=== PATIENT | female | born 1990 | race Caucasian/White ===

== ENCOUNTER 2019-05-08 08:10 | Inpatient (IN) | payer OTHER ==
[~2019-05-08] VITALS: Ht 162 cm; Wt 81.2 kg
[2019-05-08] MEDS ORDERED: PREN-217 PO (09:00)
[2019-05-08 09:01] VITALS: BP 121/78
[2019-05-08] MEDS ORDERED: OXYTOCIN 30 UNITS/LACT RINGERS 500 ML IV ONE (10:22)
[2019-05-08] MEDS ORDERED: RINGERS SOLUTION,LACTATED 1,000 ML IV PRN (10:22)
[2019-05-08] MEDS ORDERED: METHYLERGONOVINE MALEATE 0.2 MG/ML VIAL IM PRN (10:30)
[2019-05-08] MEDS ORDERED: METOCLOPRAMIDE HCL 5 MG/ML 2 ML VIAL IVP PRN (10:30)
[2019-05-08] MEDS ORDERED: CITRIC ACID/SODIUM CITRATE 30 ML SOLUTION UDCUP PO PRN (10:30)
[2019-05-08] MEDS ORDERED: LIDOCAINE/PF 1% 30 ML VIAL INJ PRN (10:30)
[2019-05-08] MEDS ORDERED: FentaNYL CITRATE-PF 100 MCG/2 ML VIAL IVP PRN (10:30)
[2019-05-08 11:26] LABS: BASOPHILS % (AUTO) 0.4 % (0.0-2.0); EOSINOPHILS % (AUTO) 1.2 % (1.0-6.0); HEMATOCRIT 33.3 % (36-46); HEMOGLOBIN 10.5 g/dL (12.0-16.0); LYMPHOCYTES # (AUTO) 1.9 K/uL (1.0-4.8); LYMPHOCYTES % (AUTO) 18.7 % (22.0-44.0); MEAN CORPUSCULAR HEMOGLOBIN 26.6 pg (26.0-34.0); MEAN CORPUSCULAR HGB CONC 31.6 G/dL (31.0-37.0); MEAN CORPUSCULAR VOLUME 84 fL (80-100); MONOCYTES # (AUTO) 0.8 K/uL (0.1-1.0); MONOCYTES % (AUTO) 7.6 % (2.0-9.0); NEUTROPHILS # (AUTO) 7.5 K/uL (1.8-7.7); NEUTROPHILS % (AUTO) 72.1 % (40.0-70.0); PLATELET COUNT (AUTO)-OB 286 K/uL (150-450); RED BLOOD CELL COUNT(AUTO) 3.96 MIL/uL (4.00-5.20); RED CELL DISTRIBUTION WIDTH 16.2 % (11.5-14.5)
[2019-05-08] MEDS: MISOPROSTOL 50 MCG TABLET PO SCH ×3 (12:01→20:35)
[2019-05-08] MEDS: RINGERS SOLUTION,LACTATED 1,000 ML IV SCH ×2 (12:02→23:16)
[2019-05-08] MEDS ORDERED: OXYGEN THERAPY IH SCH (20:00)
[2019-05-09] MEDS ORDERED: OXYTOCIN 30 UNITS/LACT RINGERS 500 ML IV PRN (00:40)
[2019-05-09] MEDS ORDERED: ROPIVACAINE HCL/PF 0.2% 100 ML ED ONE (01:28)
[2019-05-09] MEDS: RINGERS SOLUTION,LACTATED 1,000 ML IV SCH (01:48)
[2019-05-09] MEDS ORDERED: MORPHINE SULFATE/PF 1 MG/ML 10 ML AMP ONE (03:27)
[2019-05-09] MEDS ORDERED: MIDAZOLAM HCL 2 MG/2 ML VIAL ONE (03:27)
[2019-05-09] MEDS ORDERED: RINGERS SOLUTION,LACTATED 1,000 ML IV ONE (03:35)
[2019-05-09] MEDS ORDERED: GUM MASTIC/STORAX/MSAL/ALCOHOL LIQUID 0.67 ML VIAL TP ONE (03:35)
[2019-05-09] MEDS ORDERED: ONDANSETRON HCL 4 MG/2 ML VIAL IVP PRN ×2 (04:00→04:45)
[2019-05-09] MEDS ORDERED: DiphenhydrAMINE HCL 50 MG/ML VIAL IVP PRN ×2 (04:00→04:45)
[2019-05-09] MEDS ORDERED: ROPIVACAINE HCL/PF 0.2% 100 ML ED PRN (04:00)
[2019-05-09] MEDS ORDERED: LIDOCAINE/PF 2% 5 ML VIAL ONE ×2 (04:22→04:23)
[2019-05-09] MEDS ORDERED: NALOXONE HCL 0.4 MG/ML VIAL IVP PRN (04:45)
[2019-05-09] MEDS ORDERED: OxyCODONE HCL/ACETAMINOPHEN 5-325 MG TABLET PO PRN (04:45)
[2019-05-09] MEDS ORDERED: LANOLIN 7 GM OINTMENT TP PRN (04:45)
[2019-05-09] MEDS ORDERED: ACETAMINOPHEN/CODEINE 300-30 MG TABLET PO PRN (04:45)
[2019-05-09] MEDS ORDERED: DEXTROSE 5%-0.45% SODIUM CHL 1,000 ML IV ONE (04:56)
[2019-05-09] MEDS ORDERED: METHYLERGONOVINE MALEATE 0.2 MG/ML VIAL ONE (05:01)
[2019-05-09] MEDS: DEXTROSE 5%-0.45% SODIUM CHL 1,000 ML IV SCH ×3 (05:11→16:58)
[2019-05-09] MEDS: KETOROLAC TROMETHAMINE 30 MG/ML VIAL IVP SCH ×3 (07:40→20:27)
[2019-05-09] MEDS ORDERED: OXYGEN THERAPY IH SCH ×2 (08:00)
[2019-05-09 12:18] LABS: BASOPHILS % (AUTO) 0.1 % (0.0-2.0); EOSINOPHILS % (AUTO) 0 % (1.0-6.0); HEMATOCRIT 31.1 % (36-46); HEMOGLOBIN 9.7 g/dL (12.0-16.0); LYMPHOCYTES # (AUTO) 1.1 K/uL (1.0-4.8); MEAN CORPUSCULAR HEMOGLOBIN 26.2 pg (26.0-34.0); MEAN CORPUSCULAR HGB CONC 31.3 G/dL (31.0-37.0); MEAN CORPUSCULAR VOLUME 84 fL (80-100); MONOCYTES # (AUTO) 0.7 K/uL (0.1-1.0); MONOCYTES % (AUTO) 3.7 % (2.0-9.0); NEUTROPHILS # (AUTO) 16.6 K/uL (1.8-7.7); PLATELET COUNT (AUTO)-OB 241 K/uL (150-450); RED BLOOD CELL COUNT(AUTO) 3.72 MIL/uL (4.00-5.20); RED CELL DISTRIBUTION WIDTH 15.8 % (11.5-14.5)
[2019-05-09 12:20] LABS: NEUTROPHILS % (AUTO) 90.2 % (40.0-70.0)
[2019-05-09] MEDS: MAGNESIUM HYDROXIDE SUSPENSION 30 ML UDCUP PO SCH (21:13)
[2019-05-10] MEDS: IBUPROFEN 800 MG TABLET PO SCH ×4 (03:51→22:46)
[2019-05-10] MEDS ORDERED: DEXAMETHASONE SOD PHOS 4 MG/ML VIAL IVP ONE (05:55)
[2019-05-10] MEDS ORDERED: OXYTOCIN 10 UNITS/ML VIAL IM ONE (05:55)
[2019-05-10] MEDS ORDERED: KETOROLAC TROMETHAMINE 60 MG/2 ML VIAL IM ONE (05:55)
[2019-05-10] MEDS ORDERED: LIDOCAINE/PF 2% 5 ML VIAL IM ONE (05:55)
[2019-05-10] MEDS ORDERED: METOCLOPRAMIDE HCL 5 MG/ML 2 ML VIAL IVP ONE (05:55)
[2019-05-10] MEDS ORDERED: ONDANSETRON HCL 4 MG/2 ML VIAL IVP ONE (05:55)
[2019-05-10] MEDS: MAGNESIUM HYDROXIDE SUSPENSION 30 ML UDCUP PO SCH ×2 (09:00→22:46)
[2019-05-10] MEDS: ACETAMINOPHEN/CODEINE 300-30 MG TABLET PO PRN (16:55)
[2019-05-11] MEDS: IBUPROFEN 800 MG TABLET PO SCH ×3 (04:10→22:23)
[2019-05-11] MEDS: ACETAMINOPHEN/CODEINE 300-30 MG TABLET PO PRN (14:13)
[2019-05-12] MEDS: IBUPROFEN 800 MG TABLET PO SCH (05:32)
[2019-05-12] MEDS: MAGNESIUM HYDROXIDE SUSPENSION 30 ML UDCUP PO SCH (09:00)
[2019-05-12] MEDS ORDERED: IBUP-2071 PO (09:25)
[2019-05-12] MEDS ORDERED: FERR-89 PO (09:29)
[2019-05-12] MEDS ORDERED: DSS100 PO (09:29)
== END 2019-05-12 10:30 | disposition home or self-care (01) | DRG 787 ==
LOC: 4S 08:10 → OBSVTOIN 08:10 → 4S 05-10 17:00
PROVIDERS: ADMIT Obstetrics & Gynecology; ATTEND Obstetrics & Gynecology
PROC: 10D00Z1 Extraction of Products of Conception, Low, Open Approach (ICD-10-PCS; principal; 2019-05-09)
DX: O69.81X0 Labor and delivery complicated by cord around neck, without compression, not applicable or unspecified (principal); O41.03X0 Oligohydramnios, third trimester, not applicable or unspecified; Z3A.40 40 weeks gestation of pregnancy; Z37.0 Single live birth
CPT/HCPCS: 86850; 86900; 86901; J0690; J1100; J1885; J2210; J2250; J2405; J2590; J2765; J2795; J3490; J7120